=== PATIENT | female | born 1980 | race Hispanic/Latino ===

== ENCOUNTER 2022-07-02 09:26 | Inpatient (IN) | payer SELFPAY ==
[~2022-07-02] VITALS: Ht 160 cm; Wt 65.8 kg
[2022-07-02] MEDS ORDERED: ONDANSETRON HCL INJ 2MG/ML 2ML 2 MG/ML VIAL IV STA ×2 (09:40→12:23)
[2022-07-02] MEDS ORDERED: SODIUM CHLORIDE 0.9% 1000ML 1,000 ML IV STA (09:40)
[2022-07-02 09:52] LABS: BASOPHILS % 0.3 % (0.0-1.0); EOSINOPHILS # (AUTO) 0.1 (0.0-0.4); EOSINOPHILS % 0.7 % (0.0-6.0); HEMATOCRIT 35.9 % (34.2-44.1); HEMOGLOBIN 11.4 g/dL (12.0-16.0); LYMPHOCYTES # (AUTO) 1.1 (1.0-3.2); LYMPHOCYTES % 10.6 % (18.0-39.1); MEAN CORPUSCULAR HEMOGLOBIN 28.6 pg (28-32); MEAN CORPUSCULAR HGB CONC 31.8 g/dL (31-35); MEAN CORPUSCULAR VOLUME 90.2 fL (81-99); MONOCYTES # (AUTO) 0.4 (0.2-0.8); MONOCYTES % 3.4 % (4.4-11.3); NEUTROPHILS # (AUTO) 8.9 (2.1-6.9); NEUTROPHILS % 84.3 % (38.7-80.0); PLATELET COUNT 313 x10e3/uL (140-360); RED BLOOD COUNT 3.98 x10e6/uL (3.6-5.1); RED CELL DISTRIBUTION WIDTH 13.3 % (11.7-14.4)
[2022-07-02] MEDS ORDERED: ONDANSETRON HCL INJ 2MG/ML 2ML 2 MG/ML VIAL ONE (10:03)
[2022-07-02 10:17] LABS: CLARITY,URINE SL CLOUDY (CLEAR); COLOR,URINE YELLOW (YELLOW); KETONES,URINE NEGATIVE (NEGATIVE); LEUKOCYTE ESTERASE ,URINE NEGATIVE (NEGATIVE); NITRITE,URINE NEGATIVE (NEGATIVE); PROTEIN,URINE DIPSTICK NEGATIVE (NEGATIVE); URINE UROBILINOGEN 0.2 mg/dL (0.2 - 1)
[2022-07-02 10:24] LABS: BACTERIA,URINE RARE /HPF; EPITHELIAL CELLS,URINE MODERATE /LPF; TRANSITIONAL EPI CELLS,URINE FEW; WBC,URINE (MAN) 0-5 /HPF (0-5)
[2022-07-02 10:36] LABS: ALANINE AMINOTRANSFERASE 8 IU/L (0-55); ALBUMIN 3.2 g/dL (3.5-5.0); ALBUMIN/GLOBULIN RATIO 0.7 (0.8-2.0); ALKALINE PHOSPHATASE 61 IU/L (40-150); BLOOD UREA NITROGEN 12 mg/dL (7-26); BUN/CREATININE RATIO 16 (6-25); CALCIUM 8.7 mg/dL (8.4-10.2); CARBON DIOXIDE 26 mmol/L (22-29); CHLORIDE 104 mmol/L (98-107); CREATININE, SERUM 0.74 mg/dL (0.57-1.11); GLUCOSE 107 mg/dL (74-118); LIPASE 9 U/L (8-78); SODIUM 138 mmol/L (136-145)
[2022-07-02] MEDS ORDERED: IOPAMIDOL 370 MG/ML 100 ML INFUS..BTL INJ ONE (11:13)
[2022-07-02] MEDS ORDERED: Morphine 2mg Syringe 2 MG/ML SYR IV STA (12:23)
[2022-07-02] MEDS ORDERED: CIPROFLOXACIN 400 MG/D5W 200ML 200 ML IV SCH (12:30)
[2022-07-02] MEDS: ONDANSETRON HCL INJ 2MG/ML 2ML 2 MG/ML VIAL IV PRN ×2 (12:44→17:00)
[2022-07-02] MEDS: METRONIDAZOLE 500MG/NS 100ML 100 ML IV SCH ×3 (12:44→23:32)
[2022-07-02] MEDS: SODIUM CHLORIDE 0.9% 1000ML 1,000 ML IV SCH ×2 (12:50→20:59)
[2022-07-02] MEDS: CIPROFLOXACIN 400 MG/D5W 200ML 200 ML IV SCH (13:23)
[2022-07-02 15:34] VITALS: BP 98/61
[2022-07-02 15:46] VITALS: BP 98/61
[2022-07-02 15:48] VITALS: BP 98/61
[2022-07-02] MEDS: Morphine 2mg Syringe 2 MG/ML SYR IV PRN ×2 (17:00→20:56)
[2022-07-02 20:00] VITALS: BP 92/57
[2022-07-02 21:00] VITALS: BP 92/57
[2022-07-03] VITALS (8 sets, daily range): BP systolic 94–113; BP diastolic 53–67
[2022-07-03] MEDS: SODIUM CHLORIDE 0.9% 1000ML 1,000 ML IV SCH ×3 (04:14→21:40)
[2022-07-03] MEDS: CIPROFLOXACIN 400 MG/D5W 200ML 200 ML IV SCH ×2 (04:14→14:00)
[2022-07-03 05:25] LABS: BASOPHILS % 0.5 % (0.0-1.0); EOSINOPHILS # (AUTO) 0.1 (0.0-0.4); EOSINOPHILS % 1.2 % (0.0-6.0); HEMOGLOBIN 10.3 g/dL (12.0-16.0); LYMPHOCYTES # (AUTO) 1.4 (1.0-3.2); LYMPHOCYTES % 20.6 % (18.0-39.1); MEAN CORPUSCULAR HEMOGLOBIN 28.5 pg (28-32); MEAN CORPUSCULAR HGB CONC 31.2 g/dL (31-35); MEAN CORPUSCULAR VOLUME 91.4 fL (81-99); MONOCYTES # (AUTO) 0.4 (0.2-0.8); MONOCYTES % 5.9 % (4.4-11.3); NEUTROPHILS # (AUTO) 4.7 (2.1-6.9); NEUTROPHILS % 70.4 % (38.7-80.0); PLATELET COUNT 275 x10e3/uL (140-360); RED BLOOD COUNT 3.61 x10e6/uL (3.6-5.1); RED CELL DISTRIBUTION WIDTH 13.2 % (11.7-14.4)
[2022-07-03 05:56] LABS: ALBUMIN 2.7 g/dL (3.5-5.0); ALBUMIN/GLOBULIN RATIO 0.7 (0.8-2.0); CALCIUM 8.4 mg/dL (8.4-10.2); CREATININE, SERUM 0.78 mg/dL (0.57-1.11)
[2022-07-03] MEDS: METRONIDAZOLE 500MG/NS 100ML 100 ML IV SCH ×3 (06:03→17:34)
[2022-07-03] MEDS: ONDANSETRON HCL INJ 2MG/ML 2ML 2 MG/ML VIAL IV PRN ×2 (06:03→14:41)
[2022-07-03 06:58] LABS: BAND NEUTROPHILS % (MANUAL) 2 %; EOSINOPHILS % (MANUAL) 3 % (0-7); LYMPHOCYTES % (MANUAL) 25 % (19-48); METAMYELOCYTES % (MANUAL) 2 % (0-0); MONOCYTES % (MANUAL) 8 % (3.4-9.0); NEUTROPHILS % (MANUAL) 59 % (40-74)
[2022-07-03 06:59] LABS: PLATELET ESTIMATE ADEQUATE
[2022-07-03 07:00] LABS: PLATELET MORPHOLOGY COMMENT NORMAL
[2022-07-03] MEDS ORDERED: KETOROLAC TROMETHAMINE 30 MG/ML VIAL IV PRN (14:45)
[2022-07-04 00:18] VITALS: BP 100/55
[2022-07-04] MEDS: METRONIDAZOLE 500MG/NS 100ML 100 ML IV SCH ×3 (00:43→12:38)
[2022-07-04] MEDS: ONDANSETRON HCL INJ 2MG/ML 2ML 2 MG/ML VIAL IV PRN (01:38)
[2022-07-04] MEDS: CIPROFLOXACIN 400 MG/D5W 200ML 200 ML IV SCH ×2 (01:38→13:42)
[2022-07-04] MEDS: SODIUM CHLORIDE 0.9% 1000ML 1,000 ML IV SCH ×2 (04:38→12:38)
[2022-07-04 05:23] VITALS: BP 102/64
[2022-07-04 08:56] VITALS: BP 102/58
[2022-07-04 09:16] VITALS: BP 102/58
[2022-07-04 12:11] VITALS: BP 103/58
[2022-07-04 16:19] VITALS: BP 97/57
== END 2022-07-04 15:11 | disposition home or self-care (01) | DRG 392 ==
LOC: ER 09:31 → ERHOLD 12:30 → MED/SURG2 15:17
PROVIDERS: ADMIT Family Medicine; ATTEND Family Medicine
DX: K57.20 Diverticulitis of large intestine with perforation and abscess without bleeding (principal); N70.11 Chronic salpingitis; Z88.0 Allergy status to penicillin; N73.9 Female pelvic inflammatory disease, unspecified; N83.201 Unspecified ovarian cyst, right side; Z20.822 Contact with and (suspected) exposure to COVID-19
CPT/HCPCS: 0223U; 36415; 74177; 80053; 81001; 83690; 84702; 85025; 87086; 96361; 99284; J1885; J2270; J2405; J7030; Q9967